=== PATIENT | female | born 1985 | race Caucasian/White ===

== ENCOUNTER → 2018-09-26 | Outpatient (CLI) | payer MEDICAID ==
[2018-09-26 11:19] VITALS: BP 121/89; PULSE 84; RESP 16; TEMP 98.8; BMI 39.9
--- NOTE | 2018-09-26 12:56 | P.HPBAR ---
Bariatric H&P - History & Physicial H&P Date: 09/26/18 History & Physicial: Visit/CC: Initial Visit Patient initial contact: Initial weight: 105.687 kg Initial weight in pounds: 233.00 Height: 5 ft 4 in Initial BMI: 39.9 Last weight: Current weight: 105.687 kg Current weight in pounds: 233.00 Current BMI: 39.9 [place] body weight (based on NIH guidelines): 54.431 kg Excess body weight loss: 0.0% The patient is a 32 year-old F who presents for Bariatric Assessment. HPI: She is looking into sleeve gastrectomy. Her highest weight 260 pounds. She is in medical supervised weight loss of 30 pounds. She takes Zantac daily. Her GERD. Her reflux is severe. She has been doing dieting over 5 years on and off. No cancers in the family. No DVTS. No easy bruising. She still has her gallbladder. No family history of gallbladder problems. ABDOMEN: Unremarkable. ASSESSMENT: 1. Morbid obesity PLAN: 1. EGD for reflux 2. US gallbladder Past Medical History Past Medical History: GERD/Reflux History of Any Multi-Drug Resistant Organisms: None Reported Past Surgical History: Adenoidectomy, Tonsillectomy Past Anesthesia/Blood Transfusion Reactions: No Reported Reaction Smoking Status: Never smoker Surgical - Exam Vital Signs Temp Pulse Resp BP 98.8 F 84 16 121/89 09/26/18 11:15 09/26/18 11:15 09/26/18 11:15 09/26/18 11:15 Bariatric Checklist Checklist: Plan: Checklist: EGD: 1. Hiatal hernia: 2. H. Pylori: HgbA1c: Vitamin D: Smoking: Never smoker Primary care physician referral: Dr. German [facility] Psychiatry clearance: Cardiology clearance: Sleep study: Diet journal: VTE risk score: VTE risk level: Rehab needs at discharge:
[2018-09-26 13:08] LABS: HCT 44.3 % (34.0-46.0); MCH 29.8 pg (25.0-35.0); MCHC 31.6 g/dL (31.0-37.0); MCV 94.4 fL (80.0-100.0); Mean Platelet Volume 7.2; Platelet Count 228 k/uL (150-450); RBC 4.69 m/uL (3.80-5.40); RDW 13.3 % (11.5-15.5); WBC 6.1 k/uL (3.8-10.6)
[2018-09-26 13:27] LABS: INR 0.9 (<1.2); Partial Thromboplastin Time 25.2 sec (22.0-30.0); Prothrombin Time 10.1 sec (9.0-12.0)
[2018-09-26 18:50] LABS: Parathyroid Hormone Intact 43.6 pg/mL (14.0-72.0)
[2018-09-26 20:47] LABS: Albumin 4.4 g/dL (3.80-4.90); Albumin/Globulin Ratio 1.63 (1.60-3.17); Anion Gap 7.7 mmol/L (4.00-12.00); Calcium 9.5 mg/dL (8.7-10.3); Carbon Dioxide 26.3 mmol/L (21.6-31.8); Globulin 2.7 g/dL (1.6-3.3); Magnesium 2.1 mg/dL (1.5-2.4); Phosphorus 3.3 mg/dL (2.4-5.1); Potassium 4.5 mmol/L (3.5-5.5); Total Bilirubin 0.5 mg/dL (0.3-1.2); Total Protein 7.1 g/dL (6.2-8.2)
[2018-09-26 21:05] LABS: Iron Saturation 6.49 (12.00-45.00)
[2018-09-26 21:15] LABS: Vitamin D 25 Hydroxy 32.6 ng/mL (30.0-100.0)
[2018-09-26 21:18] LABS: Folate, Serum 12.4 ng/mL
[2018-09-27 12:54] LABS: Zinc, Serum 80 ug/dL (60-130)
[2018-09-28 15:07] LABS: Vit B1(Thiamine) 56 ug/L (38-122)
[2018-09-30 07:16] LABS: Vitamin A 32 ug/dL (38-106)
[2018-10-01 00:44] LABS: Selenium 123 mcg/L (63-160)
== END ==
LOC: BARWHC3 09:35
PROVIDERS: ATTEND Surgery Plastic and Reconstructive Surgery
DX: E66.01 Morbid (severe) obesity due to excess calories (principal); K21.9 Gastro-esophageal reflux disease without esophagitis; E88.81 Metabolic syndrome and other insulin resistance; E44.0 Moderate protein-calorie malnutrition; E55.9 Vitamin D deficiency, unspecified; I11.9 Hypertensive heart disease without heart failure; G47.30 Sleep apnea, unspecified; Z68.43 Body mass index [BMI] 50.0-59.9, adult; Z79.899 Other long term (current) drug therapy
CPT/HCPCS: 80053; 80061; 82306; 82525; 82607; 82728; 82746; 83036; 83540; 83550; 83735; 83970; 84100; 84134; 84255; 84425; 84443; 84590; 84630; 85027; 85610; 85730; 93005; 99201

== ENCOUNTER → 2018-12-23 | Day surgery (SDC) | payer MEDICAID ==
[2018-12-16 09:03] VITALS: BMI 38.7
[~2018-12-23] MED LIST: LACTATED RINGERS 1,000 ML IV SCH; LIDOCAINE 1% 20 ML VIAL (10MG/ML) FOR IV START INTRADERMA PRN; LIDOCAINE 1% INJ 10MG/ML (20 ML MDV) ONE; PROPOFOL 10 MG/ML 20 ML VIAL IV ONE
[2018-12-23 08:34] VITALS: TEMP 98.1
--- NOTE | 2018-12-23 10:46 | P.GSHP ---
History of Present Illness H&P Date: 12/23/18 CHIEF COMPLAINT: GERD HISTORY OF PRESENT ILLNESS: The patient is a 33-year-old female who presents reports gastroesophageal reflux disease. Upper endoscopy was offered for further evaluation and management. PAST MEDICAL HISTORY: Please see list. PAST SURGICAL HISTORY: Please see list. MEDICATIONS: Please see list. ALLERGIES: Please see list. SOCIAL HISTORY: No illicit drug use FAMILY HISTORY: No reports of Crohn disease or ulcerative colitis. REVIEW OF ORGAN SYSTEMS: CONSTITUTIONAL: No reports of fevers or chills. GI: Denies any blood in stools or constipation. PHYSICAL EXAM: VITAL SIGNS: Stable GENERAL: Well-developed and pleasant in no acute distress. HEENT: No scleral icterus. Extraocular movements grossly intact. Moist buccal mucosa. NECK: Supple without lymphadenopathy. CHEST: Unlabored respirations. Equal bilateral excursions. CARDIOVASCULAR: Regular rate and rhythm. Distal 2+ pulses. ABDOMEN: Soft, nondistended. MUSCULOSKELETAL: No clubbing, cyanosis, or edema. ASSESSMENT: 1. Gastroesophageal reflux disease PLAN: 1. Recommend proceeding with an upper endoscopy Past Medical History Past Medical History: GERD/Reflux History of Any Multi-Drug Resistant Organisms: None Reported Past Surgical History: Adenoidectomy, Tonsillectomy Past Anesthesia/Blood Transfusion Reactions: No Reported Reaction Smoking Status: Never smoker - Past Family History Mother Family Medical History: No Reported History Medications and Allergies Home Medications Medication Instructions Recorded Confirmed Type Ranitidine HCl [Zantac] 150 mg PO DAILY 12/16/18 12/23/18 History Allergies Allergy/AdvReac Type Severity Reaction Status Date / Time No Known Allergies Allergy Verified 12/23/18 08:36 Surgical - Exam Vital Signs Temp Pulse Resp BP Pulse Ox 98.1 F 86 16 125/75 97 12/23/18 08:33 12/23/18 08:33 12/23/18 08:33 12/23/18 08:33 12/23/18 08:33
--- NOTE | 2018-12-23 10:56 | P.PCN ---
Date of Procedure: 12/23/18 Description of Procedure: PREOPERATIVE DIAGNOSIS: Gastroesophageal reflux disease. Morbid obesity. POSTOPERATIVE DIAGNOSIS: Morbid obesity. Gastritis. Gastroesophageal reflux disease. OPERATION: Esophagogastroduodenoscopy with biopsies along antrum. SURGEON: Marie Wood MD ANESTHESIA: MAC. INDICATIONS: The patient is a 33-year-old female who presents with a history of reflux disease. Benefits and risks of the procedure were described. Informed consent was obtained. DESCRIPTION: The patient was brought into the endoscopy suite and laid in the left lateral decubitus position. An Olympus gastroscope was passed along the posterior oropharynx down to the distal esophagus where the squamocolumnar junction was encountered at 40 cm from the incisors. The stomach was entered and no bile reflux was found. Additional findings are listed below. Biopsies with cold forceps were obtained of the antrum. The first through third portion of the duodenum was examined and unremarkable. Retroflexion of the scope confirmed Hill grade 3 lower esophageal valve. The squamocolumnar junction demonstrated LA grade B erosive esophagitis. The stomach was desufflated. The patient tolerated the procedure well. FINDINGS: Squamocolumnar junction 35 cm from the incisors. Diaphragmatic hiatus at 35 cm. Hill grade 3 lower esophageal valve. LA grade B erosive esophagitis. No active duodenitis. Chronic gastritis RECOMMENDATIONS: Upper endoscopy as needed. Plan - Discharge Summary Discharge Rx Participant: No New Discharge Prescriptions: No Action Ranitidine HCl [Zantac] 150 mg PO DAILY Discharge Medication List Ranitidine HCl [Zantac] 150 mg PO DAILY 12/16/18 [History]
[2018-12-23 11:26] VITALS: BP 123/72; PULSE 65; RESP 18
== END | disposition home or self-care (01) ==
LOC: ORWHC2ENDO 07:56
PROVIDERS: ATTEND Surgery Plastic and Reconstructive Surgery
DX: K21.0 Gastro-esophageal reflux disease with esophagitis (principal); K29.50 Unspecified chronic gastritis without bleeding; E66.01 Morbid (severe) obesity due to excess calories; K29.70 Gastritis, unspecified, without bleeding; Z68.38 Body mass index [BMI] 38.0-38.9, adult; Z79.899 Other long term (current) drug therapy
CPT/HCPCS: 81025; 88305; 43239; J2001; J2704

== ENCOUNTER → 2019-01-15 | Outpatient (CLI) | payer MEDICAID ==
[2019-01-15 16:02] VITALS: BP 138/80; PULSE 84; TEMP 98.2; BMI 38.1
--- NOTE | 2019-01-15 16:56 | P.PN ---
Subjective Progress Note Date: 01/15/19 DATE OF SERVICE: 01/15/2019 CHIEF COMPLAINT: Bariatric evaluation. HISTORY OF PRESENT ILLNESS: Luz Pepe is a 33-year-old female who comes with lifelong morbid obesity. She is looking into sleeve gastrectomy. She comes in with new gastroesophageal reflux disease. She was placed on Omeprazole and has done well. No report of abdominal pain. No reports of change in bowel habits. She has completed an upper endoscopy. At height of 5 feet 4 inches, her ideal body weight is 144 pounds. Her highest weight was 260 pounds. She comes in 222 from 233 pounds in 3 months. She has lost 11 pounds in 3 months. Her body mass index is 38.2. She is 78 pounds overweight. PAST MEDICAL HISTORY: 1. Morbid obesity due to excess calories 2. Body mass index of 40.0, initial 3. Gastroesophageal reflux disease PAST SURGICAL HISTORY: 1. Tonsillectomy 2. Adeniodectomy HOME MEDICATIONS: ALLERGIES: Medications and Allergies Home Medications Medication Instructions Recorded Confirmed Type No Known Home Medications 09/25/18 09/25/18 History Allergies Allergy/AdvReac Type Severity Reaction Status Date / Time No Known Allergies Allergy Verified 09/25/18 14:47 SOCIAL HISTORY: No past tobacco use. FAMILY HISTORY: No family history of ulcerative colitis disease or Crohn's disease. Family history of morbid obesity. No lupus in the family. No reports of stomach or esophageal cancer. REVIEW OF ORGAN SYSTEMS: CONSTITUTIONAL: At height of 5 feet 4 inches, her ideal body weight is 144 pounds. She comes in 233 pounds. Her body mass index is 40.0. She is 89 pounds overweight. HEENT: Denies any active troubles with vision or hearing. ENDOCRINE: No diabetes. No hypothyroidism. CARDIOVASCULAR: No past reports of palpitations or heart attacks or chest pain. RESPIRATORY: Has daytime somnolence. No asthma. GASTROINTESTINAL: Denies any bright red blood per rectum. No diarrhea. No constipation. MUSCULOSKELETAL: Has lower back pain and joint pain. History of occassional bilateral lower extremity edema. NEURO: No headaches. No seizure disorders. PSYCH: No depression. No suicidal ideation. RHEUMATOLOGIC: No lupus. No rheumatoid arthritis. HEMATOLOGIC: Denies any abnormal bleeding or bruising. No personal history of DVTs. SKIN: No rash. No skin cancer. PHYSICAL EXAM: VITAL SIGNS: Height 5 foot 4 inches, weight 222 pounds. BMI 38.2 Vital Signs Temp 98.2 F 01/15/19 15:53 Pulse 84 01/15/19 15:53 Resp BP 138/80 01/15/19 15:53 Pulse Ox GENERAL: Well-developed in no acute distress. HEENT: No scleral icterus. Extraocular movements grossly intact. Hears conversational speech. No nasal drainage. NECK: Supple without lymphadenopathy. CHEST: Nonlabored respirations with equal bilateral excursions. CARDIOVASCULAR: Regular rate and regular rhythm. Distal 2+ pulses. ABDOMEN: Obese, soft, nontender, nondistended. MUSCULOSKELETAL: No clubbing, cyanosis. Gross strength 5/5 distal lower extremities. NEURO: No focal or lateralizing signs. Cranial nerves 2 through 12 grossly within normal limits. PSYCH: Appropriate affect. Alert and oriented to person, place and time. SKIN: Good skin turgor. Well perfused. LABS: Iron is low at 17, Pre-albumin is low at 17, Vitamin A is low 32 EKG is normal EGD FINDINGS: Squamocolumnar junction 35 cm from the incisors. Diaphragmatic hiatus at 35 cm. Hill grade 3 lower esophageal valve. LA grade B erosive esophagitis. No active duodenitis. Chronic gastritis Final Pathologic Diagnosis GASTRIC ANTRUM, BIOPSY: Mild chronic gastritis. Helicobacter organisms are not identified on routine H+E stained sections. ASSESSMENT: 1. Morbid obesity due to excess calories 2. Body mass index of 40.0, initial 3. Gastroesophageal reflux disease PLAN: 1. She does well with omeprazole. Continue with Omeprazole 2. She wants the sleeve where increased risk for gastroesophageal reflux was described. 3. Recommend sleep study for additional comorbidities such as sleep apnea. 4. Continue with medical supervised weight loss. Objective - Vital Signs Vital signs: Vital Signs Temp 98.2 F 01/15/19 15:53 Pulse 84 01/15/19 15:53 Resp BP 138/80 01/15/19 15:53 Pulse Ox Intake & Output 01/14/19 01/15/19 01/15/19 18:59 06:59 18:59 Weight 100.879 kg
== END | disposition home or self-care (01) ==
LOC: BARWHC3 15:24
PROVIDERS: ATTEND Surgery Plastic and Reconstructive Surgery
DX: E66.01 Morbid (severe) obesity due to excess calories (principal); K21.9 Gastro-esophageal reflux disease without esophagitis; Z68.38 Body mass index [BMI] 38.0-38.9, adult; Z79.899 Other long term (current) drug therapy
CPT/HCPCS: 99211

== ENCOUNTER → 2019-01-20 | Outpatient (CLI) | payer MEDICAID ==
[2019-01-20 09:42] VITALS: BMI 40.3
== END ==
LOC: BARWHC3 08:32
PROVIDERS: ATTEND Surgery Plastic and Reconstructive Surgery
DX: E66.01 Morbid (severe) obesity due to excess calories (principal); Z68.41 Body mass index [BMI] 40.0-44.9, adult
CPT/HCPCS: 97804

== ENCOUNTER → 2019-04-02 | Outpatient (CLI) | payer MEDICAID ==
[2019-04-02 16:28] VITALS: BP 138/64; PULSE 91; RESP 16; TEMP 99; BMI 37.9
--- NOTE | 2019-04-02 17:02 | P.PN ---
Subjective Progress Note Date: 04/02/19 DATE OF SERVICE: 04/02/2019 CHIEF COMPLAINT: Morbid obesity. HISTORY OF PRESENT ILLNESS: Luz Pepe is a 33-year-old female who comes with lifelong morbid obesity. She is looking into sleeve gastrectomy. She has gastroesophageal reflux disease. No report of abdominal pain. She has history of iron deficiency anemia. She is undergoing medical supervised weight loss. At height of 5 feet 4 inches, her ideal body weight is 144 pounds. Her highest weight was 260 pounds, BMI 44.7. She comes in 228 pounds from 222 pounds, 3 months ago. She has lost 7 pounds in 3 months. Her body mass index is 37.9. She is 84 pounds overweight. PAST MEDICAL HISTORY: 1. Morbid obesity due to excess calories 2. Body mass index of 44.7, initial 3. Gastroesophageal reflux disease 4. Iron deficiency anemia 5. Chronic gastritis PAST SURGICAL HISTORY: 1. Tonsillectomy 2. Adeniodectomy 3. Upper endoscopy HOME MEDICATIONS: ALLERGIES: Medications and Allergies Home Medications Medication Instructions Recorded Confirmed Type No Known Home Medications 09/25/18 09/25/18 History Allergies Allergy/AdvReac Type Severity Reaction Status Date / Time No Known Allergies Allergy Verified 09/25/18 14:47 SOCIAL HISTORY: No past tobacco use. FAMILY HISTORY: No family history of ulcerative colitis disease or Crohn's disease. Family history of morbid obesity. No lupus in the family. No reports of stomach or esophageal cancer. REVIEW OF ORGAN SYSTEMS: CONSTITUTIONAL: At height of 5 feet 4 inches, her ideal body weight is 144 pounds. Her highest weight was 260 pounds, BMI 44.7. HEENT: Denies any active troubles with vision or hearing. ENDOCRINE: No diabetes. No hypothyroidism. CARDIOVASCULAR: No past reports of palpitations or heart attacks or chest pain. RESPIRATORY: Has daytime somnolence. No asthma. GASTROINTESTINAL: Denies any bright red blood per rectum. No diarrhea. No constipation. Has gastroesophageal reflux disease. MUSCULOSKELETAL: Has lower back pain and joint pain. NEURO: No headaches. No seizure disorders. PSYCH: No depression. No suicidal ideation. RHEUMATOLOGIC: No lupus. No rheumatoid arthritis. HEMATOLOGIC: Denies any abnormal bleeding or bruising. No personal history of DVTs. SKIN: No rash. No skin cancer. PHYSICAL EXAM: VITAL SIGNS: Height 5 foot 4 inches, weight 228 pounds. BMI 39.1 Vital Signs Temp 99 F 04/02/19 16:24 Pulse 91 04/02/19 16:24 Resp 16 04/02/19 16:24 BP 138/64 04/02/19 16:24 Pulse Ox GENERAL: Well-developed in no acute distress. HEENT: No scleral icterus. Extraocular movements grossly intact. Hears conversational speech. No nasal drainage. NECK: Supple without lymphadenopathy. CHEST: Nonlabored respirations with equal bilateral excursions. CARDIOVASCULAR: Regular rate and regular rhythm. Distal 2+ pulses. ABDOMEN: Obese, soft, nontender, nondistended. MUSCULOSKELETAL: No clubbing, cyanosis. Gross strength 5/5 distal lower extremities. NEURO: No focal or lateralizing signs. Cranial nerves 2 through 12 grossly within normal limits. PSYCH: Appropriate affect. Alert and oriented to person, place and time. SKIN: Good skin turgor. Well perfused. LABS: Vitamin A is low, Iron is low. Pre-albumin is low. EKG is normal. ASSESSMENT: 1. Morbid obesity due to excess calories 2. Body mass index of 44.7, initial 3. Gastroesophageal reflux disease 4. Iron deficiency anemia 5. Pre-hypertension 6. Obstructive sleep apnea. PLAN: 1. Bariatric options between a sleeve, band and a Becca-en-Y gastric bypass were reviewed in detail. The patient elected for a sleeve gastrectomy. Robotic assisted approach described. 2. The [place] [facility] Data was also reviewed with benefits and risks as described. 3. An 8 page second-generation bariatric consent form was reviewed in detail including potential of bleeding, infection, leaks, adequate weight loss, nutritional deficiencies which the patient demonstrated understanding of the risks. 4. A 2 week high-protein low caloric 800 kcal diet described to address hepatom egaly. 5. Preoperative labs including complete metabolic panel and CBC with type and screen recommended. 6. DVT prophylaxis per [place] [facility]. 7. Antibiotic prophylaxis. 8. Inpatient hospitalization anticipated for more than 2 nights. 9. All questions and concerns were addressed with the patient. 10. She has low iron and recommend iron infusion. Objective - Vital Signs Vital signs: Vital Signs Temp 99 F 04/02/19 16:24 Pulse 91 04/02/19 16:24 Resp 16 04/02/19 16:24 BP 138/64 04/02/19 16:24 Pulse Ox Intake & Output 04/01/19 04/02/19 04/02/19 18:59 06:59 18:59 Weight 103.419 kg
[2019-04-03 01:08] LABS: Ferritin 126.6 ng/mL (10.0-291.0)
[2019-04-03 01:25] LABS: Iron Saturation 8.57 (12.00-45.00)
== END | disposition home or self-care (01) ==
LOC: BARWHC3 15:49
PROVIDERS: ATTEND Surgery Plastic and Reconstructive Surgery
DX: E66.01 Morbid (severe) obesity due to excess calories (principal); D50.9 Iron deficiency anemia, unspecified
CPT/HCPCS: 82728; 83540; 83550; 99211

== ENCOUNTER → 2019-04-10 | Outpatient (CLI) | payer MEDICAID ==
--- NOTE | 2019-04-10 11:00 | US ---
EXAMINATION TYPE: US gallbladder DATE OF EXAM: 04/10/2019 COMPARISON: NONE CLINICAL HISTORY: R10.11 ABD PAIN RUQ. Pt states pre-op gastric sleeve surgery EXAM MEASUREMENTS: Liver Length: 15.8 cm Gallbladder Wall: 0.2 cm CBD: 0.4 cm Right Kidney: 10.6 x 3.7 x 4.4 cm Pancreas: wnl Liver: wnl Gallbladder: wnl Evidence for sonographic Pepe's sign: No CBD: wnl Right Kidney: wnl No abnormality visualized IMPRESSION: No distinct abnormality appreciated.
== END | disposition home or self-care (01) ==
LOC: RADUSWWP 10:31
PROVIDERS: ATTEND Surgery Plastic and Reconstructive Surgery
DX: K81.9 Cholecystitis, unspecified (principal); R10.11 Right upper quadrant pain
CPT/HCPCS: 76705

== ENCOUNTER → 2019-04-23 | Outpatient (CLI) | payer MEDICAID ==
[2019-04-23 17:00] LABS: ALT 29 U/L (9-52); AST 20 U/L (14-36); African American GFR (CKD) >90 (>60 ml/min/1.73 sqM); Albumin 4.2 g/dL (3.5-5.0); Alkaline Phosphatase 56 U/L (38-126); Anion Gap 8 mmol/L; Blood Urea Nitrogen 18 mg/dL (7-17); Calcium 9.4 mg/dL (8.4-10.2); Carbon Dioxide 26 mmol/L (22-30); Chloride 104 mmol/L (98-107); Glucose 83 mg/dL (74-99); Potassium 3.9 mmol/L (3.5-5.1); Sodium 138 mmol/L (137-145); Total Bilirubin 0.4 mg/dL (0.2-1.3); Total Protein 7.3 g/dL (6.3-8.2)
[2019-04-23 17:05] LABS: Basophils % (A) 1 %; Eosinophils # (A) 0.2 k/uL (0-0.7); Eosinophils % (A) 2 %; HGB 13.4 gm/dL (11.4-16.0); Lymphocytes # (A) 1.8 k/uL (1.0-4.8); Lymphocytes % (A) 24 %; MCH 29.9 pg (25.0-35.0); MCHC 32.8 g/dL (31.0-37.0); MCV 91.4 fL (80.0-100.0); Monocytes # (A) 0.5 k/uL (0-1.0); Monocytes % (A) 6 %; Neutrophils % (A) 66 %; Platelet Count 234 k/uL (150-450); RBC 4.49 m/uL (3.80-5.40); RDW 13.1 % (11.5-15.5); WBC 7.6 k/uL (3.8-10.6)
== END | disposition home or self-care (01) ==
LOC: LABPAT 15:51
PROVIDERS: ATTEND Surgery Plastic and Reconstructive Surgery
DX: Z01.812 Encounter for preprocedural laboratory examination (principal)
CPT/HCPCS: 80053; 85025

== ENCOUNTER 2019-04-28 12:00 | Inpatient (IN) | payer MEDICAID ==
[2019-04-24 11:22] VITALS: BMI 38.4
--- NOTE | 2019-04-27 16:00 | P.PN ---
Progress Note - Text Progress Note Date: 04/27/19 Message left on telephone regarding impending snowstorm tomorrow. Patient offered for rescheduling or start travel time earlier to make visit.
--- NOTE | 2019-04-27 20:16 | P.GSHP ---
History of Present Illness H&P Date: 04/28/19 DATE OF SERVICE: 04/28/2019 CHIEF COMPLAINT: Morbid obesity HISTORY OF PRESENT ILLNESS: Luz Pepe is a 33-year-old female who comes with lifelong morbid obesity. She is looking into sleeve gastrectomy. She comes in with gastroesophageal reflux disease. She was placed on Omeprazole and has done well. No report of abdominal pain. No reports of change in bowel habits. As a result of her morbid obesity, she has osteoarthritis of the hips and knees. She is pre-hypertensive. At height of 5 feet 4 inches, her ideal body weight is 144 pounds. Her highest weight was 260 pounds. She comes in 224 pounds from 222 pounds in 3 months. She has gained 2 pounds in 3 months. Her body mass index is 38.4. She is 80 pounds overweight. PAST MEDICAL HISTORY: 1. Morbid obesity due to excess calories 2. Body mass index of 40.0, initial 3. Gastroesophageal reflux disease 4. Osteoarthritis of the knee 5. Osteoarthritis of the hips 6. Pre-hypertensive PAST SURGICAL HISTORY: 1. Tonsillectomy 2. Adeniodectomy 3. EGD HOME MEDICATIONS: ALLERGIES: Medications and Allergies Home Medications Medication Instructions Recorded Confirmed Type No Known Home Medications 09/25/18 09/25/18 History Allergies Allergy/AdvReac Type Severity Reaction Status Date / Time No Known Allergies Allergy Verified 09/25/18 14:47 SOCIAL HISTORY: No past tobacco use. FAMILY HISTORY: No family history of ulcerative colitis disease or Crohn's disease. Family history of morbid obesity. No lupus in the family. No reports of stomach or esophageal cancer. REVIEW OF ORGAN SYSTEMS: CONSTITUTIONAL: At height of 5 feet 4 inches, her ideal body weight is 144 pounds. She comes in 233 pounds. Her body mass index is 40.0. She is 89 pounds overweight. HEENT: Denies any active troubles with vision or hearing. ENDOCRINE: No diabetes. No hypothyroidism. CARDIOVASCULAR: No past reports of palpitations or heart attacks or chest pain. RESPIRATORY: Has daytime somnolence. No asthma. GASTROINTESTINAL: Denies any bright red blood per rectum. No diarrhea. No constipation. MUSCULOSKELETAL: Has lower back pain and joint pain. History of occassional bilateral lower extremity edema. NEURO: No headaches. No seizure disorders. PSYCH: No depression. No suicidal ideation. RHEUMATOLOGIC: No lupus. No rheumatoid arthritis. HEMATOLOGIC: Denies any abnormal bleeding or bruising. No personal history of DVTs. SKIN: No rash. No skin cancer. PHYSICAL EXAM: VITAL SIGNS: Height 5 foot 4 inches, weight 224 pounds. BMI 38.4 GENERAL: Well-developed in no acute distress. HEENT: No scleral icterus. Extraocular movements grossly intact. Hears conversational speech. No nasal drainage. NECK: Supple without lymphadenopathy. CHEST: Nonlabored respirations with equal bilateral excursions. CARDIOVASCULAR: Regular rate and regular rhythm. Distal 2+ pulses. ABDOMEN: Obese, soft, nontender, nondistended. MUSCULOSKELETAL: No clubbing, cyanosis. Gross strength 5/5 distal lower extremities. NEURO: No focal or lateralizing signs. Cranial nerves 2 through 12 grossly within normal limits. PSYCH: Appropriate affect. Alert and oriented to person, place and time. SKIN: Good skin turgor. Well perfused. LABS: Iron is low at 17 ASSESSMENT: 1. Morbid obesity due to excess calories 2. Body mass index of 40.0, initial 3. Gastroesophageal reflux disease 4. Osteoarthritis of the knee 5. Osteoarthritis of the hips 6. Pre-hypertensive 7. Iron deficiency anema. PLAN: 1. Bariatric options between a sleeve, band and a Becca-en-Y gastric bypass were reviewed in detail. The patient elected for a sleeve gastrectomy. Robotic assisted approach described. 2. The [place] [facility] Data was also reviewed with benefits and risks as described. 3. An 8 page second-generation bariatric consent form was reviewed in detail including potential of bleeding, infection, leaks, adequate weight loss, gastroesophageal reflux disease, nutritional deficiencies which the patient demonstrated understanding of the risks. 4. A 2 week high-protein low caloric 800 kcal diet described to address hepatomegaly. 5. Preoperative labs including complete metabolic panel and CBC with type and screen recommended. 6. DVT prophylaxis per [place] [facility]. 7. Antibiotic prophylaxis. 8. Inpatient hospitalization anticipated for more than 2 nights. 9. All questions and concerns were addressed with the patient. Past Medical History Past Medical History: Blood Disorder, GERD/Reflux Additional Past Medical History / Comment(s): Low iron, had 2 iron infusions 03/2019. History of Any Multi-Drug Resistant Organisms: None Reported Past Surgical History: Adenoidectomy, Tonsillectomy Additional Past Surgical History / Comment(s): EGD Past Anesthesia/Blood Transfusion Reactions: No Reported Reaction Smoking Status: Never smoker - Past Family History Mother Family Medical History: No Reported History Medications and Allergies Home Medications Medication Instructions Recorded Confirmed Type Omeprazole 40 mg PO DAILY #30 capsule. 12/23/18 04/24/19 Rx Iron 27 mg PO DAILY 04/24/19 04/24/19 History Levonorgestrel [Mirena] 1 each IY DIRECTED 04/24/19 04/24/19 History Multivit with Calcium,Iron,Min 1 each PO DAILY 04/24/19 04/24/19 History [Women's Multivitamin] Allergies Allergy/AdvReac Type Severity Reaction Status Date / Time No Known Allergies Allergy Verified 04/24/19 11:00
[~2019-04-28 12:00] MED LIST changes: +CHLORHEXIDINE GLUCONATE 15 ML CUP MUCOUS MEM ONE; +DEXAMETHASONE SOD PHOSPHATE 10 MG/ML 1 ML VIAL IV ONE; +ENOXAPARIN 40 MG/0.4 ML SYRINGE SQ STA; -LACTATED RINGERS 1,000 ML IV SCH; -LIDOCAINE 1% INJ 10MG/ML (20 ML MDV) ONE; +ONDANSETRON 4 MG/2 ML VIAL IVP ONE; +ONDANSETRON 4 MG/2 ML VIAL IVP PRN; +PANTOPRAZOLE 40 MG/10 ML VIAL IV STA; -PROPOFOL 10 MG/ML 20 ML VIAL IV ONE; +SCOPOLAMINE 1.5MG/72HR PATCH TRANSDERM ONE
[2019-04-28] MEDS: LACTATED RINGERS 1,000 ML IV SCH (12:45)
[2019-04-28] MEDS ORDERED: MIDAZOLAM 2 MG/2 ML VIAL IV ONE (13:00)
[2019-04-28] MEDS ORDERED: GLYCOPYRROLATE 0.2 MG/ML 2 ML VIAL ONE (14:29)
[2019-04-28] MEDS ORDERED: SUCCINYLCHOLINE CHLORIDE 100 MG/5 ML SYR IV ONE (14:29)
[2019-04-28] MEDS ORDERED: NEOSTIGMINE 1 MG/ML 10 ML VIAL ONE (14:29)
[2019-04-28] MEDS ORDERED: PROPOFOL 10 MG/ML 20 ML VIAL IV ONE (14:29)
[2019-04-28] MEDS ORDERED: MIDAZOLAM 2 MG/2 ML VIAL ONE (14:29)
[2019-04-28] MEDS ORDERED: HYDROmorphone (PF) 1 MG/ML ONE (14:29)
[2019-04-28] MEDS ORDERED: ROCURONIUM BROMIDE 10 MG/ML 10 ML VIAL IV ONE (14:29)
[2019-04-28] MEDS ORDERED: LIDOCAINE 1% INJ 10MG/ML (20 ML MDV) ONE (14:29)
[2019-04-28] MEDS ORDERED: fentaNYL (PF) 50 MCG/ML 2 ML AMP ONE (14:29)
[2019-04-28] MEDS ORDERED: LIDOCAINE 1%-EPI 1:100,000 20 ML VIAL SQ ONE ×2 (14:55→14:59)
[2019-04-28] MEDS ORDERED: LACTATED RINGERS 1,000 ML IV ONE ×2 (15:05→17:01)
[2019-04-28] MEDS: HYDROmorphone 0.5 MG/0.5 ML SYRINGE IVP PRN ×3 (16:15→16:39)
[2019-04-28] MEDS ORDERED: HYDROcodone/APAP 15 ML SOLUTION PO PRN (16:18)
[2019-04-28] MEDS ORDERED: NALOXONE 0.4 MG/ML 1 ML VIAL IV PRN (16:18)
[2019-04-28] MEDS ORDERED: ACETAMINOPHEN IV (For NPO) 1,000 MG in EMPTY BAG 1 BAG IVPB ONE (16:18)
[2019-04-28] MEDS ORDERED: DEXAMETHASONE SOD PHOSPHATE 10 MG/ML 1 ML VIAL IV PRN (16:20)
--- NOTE | 2019-04-28 16:23 | P.OP ---
Date of Procedure: 04/28/19 Description of Procedure: Date of Procedure: 04/28/19 SURGEON: OLIVIA CRUMP MD PREOPERATIVE DIAGNOSES: 1. Morbid obesity due to excess calories 2. Body mass index of 40.0, initial 3. Gastroesophageal reflux disease 4. Osteoarthritis of the knees, bilateral 5. Osteoarthritis of the hips, bilateral 6. Pre-hypertensive 7. Iron deficiency anema. POSTOPERATIVE DIAGNOSES: 1. Morbid obesity due to excess calories 2. Body mass index of 40.0, initial 3. Gastroesophageal reflux disease 4. Osteoarthritis of the knee 5. Osteoarthritis of the hips 6. Pre-hypertensive 7. Iron deficiency anema. OPERATION: 1. Robotic assisted daVinci Xi laparoscopic sleeve gastrectomy with 40-Algerian bougie, multiport. 2. Intraoperative esophagogastroduodenoscopy. ANESTHESIA: Gen. local anesthetic ESTIMATED BLOOD LOSS: 10 mL SPECIMENS REMOVED: Sleeve gastrectomy COMPLICATIONS: None. Condition: stable Disposition: floor INDICATIONS: Luz Pepe is a 33-year-old female who comes with lifelong morbid obesity. She is looking into sleeve gastrectomy. She comes in with gastroesophageal reflux disease. She was placed on Omeprazole and has done well. No report of abdominal pain. No reports of change in bowel habits. As a result of her morbid obesity, she has osteoarthritis of the hips and knees. She is pre- hypertensive. At height of 5 feet 4 inches, her ideal body weight is 144 pounds. Her highest weight was 260 pounds. She comes in 224 pounds. She comes in for sleeve gastrectomy. All surgical options for morbid obesity had been described using the [place] bariatric surgery collaborative comorbidity resolution including complication risk score. A second-generation bariatric consent form was described in detail including the possibility of protein malnutrition, leaks, gastric stricture, venous thrombosis, gastroesophageal reflux disease, need for further surgery for which she demonstrated understanding. Benefits and risks of the procedure were described at length. Informed consent was obtained. DESCRIPTION: The patient was brought into the operating room theater. Preoperatively she had received Lovenox subcutaneously for DVT prophylaxis. Additionally she had Peridex oral solution as an oral decontaminant. After general induction, the abdomen was prepped and draped in standard sterile fashion. An Ioban draping was placed along the abdomen. Earl catheter was placed. A robotic da Darby Xi system was prepped and primed. At 15 cm from the xiphoid, proposed port sites were marked with indelible marker along the anterior axillary line bilaterally, mid axillary line bilaterally with each ports were marked 10 to 15 cm from each other. The ict sales assistant port was marked along the left lateral abdominal wall. The robotic stapler port was marked for the right midclavicular line. A 5 mm 0 degrees laparoscopic trocar entry was performed along the left upper quadrant. The abdomen was insufflated to 15 mmHg pressure he tolerated well. Diagnostic laparoscopy demonstrated no injury to bowel, viscera, or mesentery. The liver surface was unremarkable. The liver edge was crisp consistent with low-carb high-protein diet for 2 weeks. No injury had occurred to the small bowel or viscera. Along the hiatus no evidence of large prominent hiatal hernia was found. A 8 mm port was placed along the right upper abdominal wall after exchanging the 5 mm port. A separate 8 mm port was placed along the left lateral abdominal wall. Please note that the ports were placed at least 20 cm away from the target anatomy. Care was taken to check each robotic arms were safely away from co llision with the bed or the patient. At the epigastrium, a median sized Maribel liver retractor was placed under direct visualization with the [employer]ating Mechanic placed under the right shoulder of the patient. Next, 12-mm robot stapler port was placed along the right upper quadrant. The camera 8-mm port was maintained along the epigastrium, The patient was repositioned in reverse Trendelenburg position at 20-degrees after lowering the bed. The robot was docked along the left side of the patient. Using a grasper for arm 4, a vessel sealer for arm 3, including grasper for arm 1, the robotic system was docked and primed as described. Instruments were interchanged by the ict sales assistant for stapler loads. The camera was placed at 30-degrees down. I had sat at the console. The pylorus was identified and 6 cm proximally along the greater curvature of the stomach, the short gastrics were mobilized upwards to the angle of His using a vessel sealer. Hemostasis was excellent during this portion of the procedure. Next, the upper pole of the stomach was adherent to the left violetta, which was gently dissected free using atraumatic grasper. The nursing strategic procurement manager placed a 40-Algerian blunted bougie into the stomach. Robotic stapler green loads 60 mm x 1, white loads 60 mm X 1, followed by blue 60 mm x 4 loads were used to create the sleeve. Initial firing was across the antrum of the stomach towards the angle of His. The staple line was completely hemostatic and linear without corkscrewing. Hemostasis was excellent. The space from the angularis incisura of the sleeve was approximately 4 cm. I then went to the head of the bed to perform the intraoperative esophagogastroduodenoscopy leak test. The upper pole of the stomach was bathed using normal saline solution. The scope was withdrawn with careful inspection along the staple line for which no leaks were found along the entire length. Additionally,the sleeve was completely hemostatic without any encroachment along the angularis incisura. Its topology was a soft "J". No stricture was encountered upon placement of the scope. The GI tract was desufflated. The patient tolerated this portion of the procedure well. The scope was completely withdrawn. The robot was undocked. I then rescrubbed into case, whereby the irrigation fluid was aspirated from the abdominal cavity. Tisseel fibrin sealant was placed along the entire staple length. Once dried the Maribel liver retractor was removed. Attention was now brought to removal of the specimen. The distal end of the sleeve gastrectomy specimen was brought out through the 12 mm port at the left upper quadrant. The specimen was gently removed en total. No contamination had occurred during this process. All instruments and pneumoperitoneum including irrigation fluid was removed from the abdominal cavity. The 12 mm port site was closed using 0-Vicryl and Rikki Love and irrigated with diluted hydrogen peroxide. The final incisions were closed using subcuticular interrupted suture of 4-0 Monocryl. Dermabond was applied to the skin once the skin had been cleansed. OptiFoam dressing was placed along the stomach extraction site. At the end of the procedure, needle, sponge, and instrument count was verified correct by the surgical pathologist. The patient was taken to the postanesthesia care unit in stable condition. She had tolerated the procedure well. Intraoperative films and findings were reviewed with the patient's family. FINDINGS: 1. Negative intraoperative esophagogastrojejunoscopy leak test. 2. No hepatomegaly and no large hiatus hernia. 3. Total of 6 staplers used including 1 - 60 mm green and white robot leandro and 4 - 60 mm blue robot loads used to create the gastric sleeve. 4. Xiphoid to umbilicus of 17 cm. 5. Trocars placed 15 cm from xiphoid process 6. Sleeve gastrectomy 24 x 4 cm 7. Stomach adherent to spleen carefully dissected 8. Console time 36 minutes
[2019-04-28] MEDS: ONDANSETRON 4 MG/2 ML VIAL IVP SCH ×2 (18:04→23:21)
[2019-04-28] MEDS: DEXAMETHASONE SOD PHOSPHATE 4 MG/ML 1 ML VIAL IV SCH ×2 (18:04→23:15)
[2019-04-28] MEDS: 0.9% NACL WITH KCL 20 MEQ/L 1,000 ML IV SCH ×2 (18:04→23:28)
[2019-04-28] MEDS: SIMETHICONE 40 MG/0.6 ML DROPS 2,000 MG/30 ML BOTTLE PO SCH ×2 (18:05→23:12)
[2019-04-28] MEDS: HYOSCYAMINE ORAL DROPS 1.875 MG/15 ML BOTTLE PO SCH ×2 (18:05→23:13)
[2019-04-28] MEDS: HYDROmorphone 1 MG/ML 1 ML SYRINGE IVP PRN ×2 (19:39→23:09)
[2019-04-28] MEDS: ALBUTEROL NEBULIZED 2.5 MG/3 ML INHALATION SCH (21:06)
[2019-04-29] MEDS: HYDROmorphone 1 MG/ML 1 ML SYRINGE IVP PRN ×3 (02:32→08:46)
[2019-04-29] MEDS: LACTATED RINGERS 1,000 ML IV SCH (05:07)
[2019-04-29] MEDS: ONDANSETRON 4 MG/2 ML VIAL IVP SCH ×2 (05:17→12:14)
[2019-04-29] MEDS: HYOSCYAMINE ORAL DROPS 1.875 MG/15 ML BOTTLE PO SCH ×2 (05:27→12:15)
[2019-04-29] MEDS: SIMETHICONE 40 MG/0.6 ML DROPS 2,000 MG/30 ML BOTTLE PO SCH ×2 (05:28→12:15)
[2019-04-29] MEDS: 0.9% NACL WITH KCL 20 MEQ/L 1,000 ML IV SCH (05:28)
[2019-04-29] MEDS: DEXAMETHASONE SOD PHOSPHATE 4 MG/ML 1 ML VIAL IV SCH ×2 (05:31→12:14)
[2019-04-29 07:02] LABS: Basophils % (A) 0 %; Eosinophils % (A) 0 %; HCT 40.3 % (34.0-46.0); HGB 13.4 gm/dL (11.4-16.0); Lymphocytes # (A) 0.7 k/uL (1.0-4.8); Lymphocytes % (A) 8 %; MCH 30.7 pg (25.0-35.0); MCHC 33.3 g/dL (31.0-37.0); MCV 92.1 fL (80.0-100.0); Mean Platelet Volume 6.7; Monocytes # (A) 0.2 k/uL (0-1.0); Monocytes % (A) 2 %; Neutrophils # (A) 7.7 k/uL (1.3-7.7); Neutrophils % (A) 89 %; Platelet Count 198 k/uL (150-450); RBC 4.38 m/uL (3.80-5.40); RDW 13.3 % (11.5-15.5); WBC 8.6 k/uL (3.8-10.6)
[2019-04-29 07:05] LABS: African American GFR (CKD) >90 (>60 ml/min/1.73 sqM); Anion Gap 8 mmol/L; Blood Urea Nitrogen 10 mg/dL (7-17); Calcium 8.6 mg/dL (8.4-10.2); Carbon Dioxide 22 mmol/L (22-30); Chloride 108 mmol/L (98-107); Magnesium 1.9 mg/dL (1.6-2.3); Phosphorus 3.1 mg/dL (2.5-4.5); Potassium 5.2 mmol/L (3.5-5.1); Sodium 138 mmol/L (137-145)
[2019-04-29] MEDS: ALBUTEROL NEBULIZED 2.5 MG/3 ML INHALATION SCH ×3 (07:55→15:22)
[2019-04-29] MEDS ORDERED: 0.9% NACL WITH KCL 20 MEQ/L 1,000 ML IV SCH (08:00)
[2019-04-29 08:22] VITALS: BP 125/76; TEMP 980
[2019-04-29] MEDS ORDERED: ENOXAPARIN 40 MG/0.4 ML SYRINGE SQ SCH (09:00)
[2019-04-29] MEDS ORDERED: PANTOPRAZOLE 40 MG/10 ML VIAL IV SCH (09:00)
--- NOTE | 2019-04-29 09:48 | FL ---
EXAMINATION TYPE: FL UGI DATE OF EXAM: 04/29/2019 CLINICAL HISTORY: Status post gastric sleeve. Postoperative evaluation. TECHNIQUE: Limited esophagram is performed utilizing Isovue 370. A total of 40 seconds of fluoroscop ic time was utilized during procedure. 11 fluoroscopic images were saved during the examination. COMPARISON: None. FINDINGS: The patient swallowed contrast without difficulty or delay. Esophageal peristalsis and mo tility are within normal limits. There is very mildly delayed flow of contrast along the diaphragmat ic hiatus into proximal stomach and subsequent flow into gastric sleeve. There is good flow from dist al sleeve into pylorus and duodenal sweep. Patient remains asymptomatic. There is no evidence of cont rast extravasation to suggest leak. IMPRESSION: No evidence of leak or significant obstruction status post recent gastric sleeve surgery. Very mild delay at the gastroesophageal junction relates to postoperative edema most commonly.
[2019-04-29 09:56] VITALS: PULSE 89; RESP 18
[2019-04-29] MEDS ORDERED: SODIUM CHLORIDE 0.9% 2,000 ML IV ONE (11:27)
--- NOTE | 2019-04-29 12:05 | P.DS ---
Providers Date of admission: 04/28/19 12:15 Expected date of discharge: 04/29/19 Attending physician: Marie Wood Primary care physician: Stated None Hospital Course: 33-year-old female who underwent robotic sleeve gastrectomy with Dr. Wood on 04/28/2019. Patient is doing well postoperatively without anemia complications. She is tolerating clear liquid diet. Denies nausea or vomiting. Pain is controlled on oral medications. Vital signs have been stable. She is stable for discharge home today. Please see EMR for further hospital course details. Discharge diagnosis 1. Morbid obesity, status post robotic sleeve gastrectomy Nurse practitioner note has been reviewed by physician. Signing provider agrees with the documented findings, assessment, and plan of care. Patient Condition at Discharge: Stable Plan - Discharge Summary Discharge Rx Participant: Yes New Discharge Prescriptions: New Bisacodyl [Dulcolax] 5 mg PO DAILY PRN #10 tablet. PRN Reason: Constipation Simethicone 40 mg/0.6 ml Drops [Mylicon Drops] 40 mg PO [facility]S PRN #30 ml PRN Reason: gas Acetaminophen Oral Susp [Tylenol Oral Susp] 650 mg PO Q4H PRN #200 ml PRN Reason: Pain Ondansetron Odt [Zofran Odt] 4 mg PO Q8HR PRN #9 tab PRN Reason: Nausea Continue Omeprazole 40 mg PO DAILY #30 capsule. Iron 27 mg PO DAILY Levonorgestrel [Mirena] 1 each IY DIRECTED Discontinued Multivit with Calcium,Iron,Min [Women's Multivitamin] 1 each PO DAILY Discharge Medication List Omeprazole 40 mg PO DAILY #30 capsule. 12/23/18 [Rx] Iron 27 mg PO DAILY 04/24/19 [History] Levonorgestrel [Mirena] 1 each IY DIRECTED 04/24/19 [History] Acetaminophen Oral Susp [Tylenol Oral Susp] 650 mg PO Q4H PRN #200 ml 04/29/19 [Rx] Bisacodyl [Dulcolax] 5 mg PO DAILY PRN #10 tablet. 04/29/19 [Rx] Ondansetron Odt [Zofran Odt] 4 mg PO Q8HR PRN #9 tab 04/29/19 [Rx] Simethicone 40 mg/0.6 ml Drops [Mylicon Drops] 40 mg PO [facility] PRN #30 ml 04/29/19 [Rx] Follow up Appointment(s)/Referral(s): [facility] [NON-STAFF] - 05/02/19 11:40 am Activity/Diet/Wound Care/Special Instructions: Continue scopolamine patch at discharge No lifting greater than 4 pounds for 4 weeks. May shower. No bathtub soaks Drinks 64 ounces of fluid daily. Notify bariatric center for temperature over 101.0, increased pain, or drainage from incisions No straws or carbonated beverages. Liquid diet only. Sugar content should be less than 6 g to avoid dumping syndrome. Take milk of magnesia for constipation as needed Crush open or cut tablets which are the size of a tic tac
== END 2019-04-29 16:30 | disposition home or self-care (01) | DRG 621 ==
LOC: 2ORMAIN 12:15 → 4SSUR 16:05
PROVIDERS: ADMIT Surgery Plastic and Reconstructive Surgery; ATTEND Surgery Plastic and Reconstructive Surgery
PROC: 0DJ08ZZ Inspection of Upper Intestinal Tract, Via Natural or Artificial Opening Endoscopic (ICD-10-PCS; 2019-04-28)
PROC: 8E0W4CZ Robotic Assisted Procedure of Trunk Region, Percutaneous Endoscopic Approach (ICD-10-PCS; 2019-04-28)
PROC: 0DB64Z3 Excision of Stomach, Percutaneous Endoscopic Approach, Vertical (ICD-10-PCS; principal; 2019-04-28 13:55)
DX: E66.01 Morbid (severe) obesity due to excess calories (principal); Z68.38 Body mass index [BMI] 38.0-38.9, adult; D50.9 Iron deficiency anemia, unspecified; K21.9 Gastro-esophageal reflux disease without esophagitis; M16.0 Bilateral primary osteoarthritis of hip; M17.0 Bilateral primary osteoarthritis of knee; Z71.3 Dietary counseling and surveillance; Z79.899 Other long term (current) drug therapy; Z98.890 Other specified postprocedural states
CPT/HCPCS: 74240; 80051; 81025; 82310; 82565; 83735; 84100; 84520; 85025; 86850; 86900; 86901; 88307; 94640; 94760; 94762

== ENCOUNTER → 2019-05-02 | Outpatient (CLI) | payer MEDICAID ==
[~2019-05-02] MED LIST changes: -CHLORHEXIDINE GLUCONATE 15 ML CUP MUCOUS MEM ONE; -ENOXAPARIN 40 MG/0.4 ML SYRINGE SQ STA; -LIDOCAINE 1% 20 ML VIAL (10MG/ML) FOR IV START INTRADERMA PRN; -ONDANSETRON 4 MG/2 ML VIAL IVP ONE; -ONDANSETRON 4 MG/2 ML VIAL IVP PRN; -PANTOPRAZOLE 40 MG/10 ML VIAL IV STA; -SCOPOLAMINE 1.5MG/72HR PATCH TRANSDERM ONE
--- NOTE | 2019-05-02 11:06 | P.PN ---
Subjective Progress Note Date: 05/02/19 Patient had burping to be expected. Had double vision from scopalamine patch resolved following removal. Oral intake supbar, less than 30 oz daily. She reports moderate soreness. Liquid tylenol gone. Recommend decadron and liquid tylenol. Continue ice and binder. Follow up next week, nurse visit. Objective - Vital Signs Vital signs: Intake & Output 05/01/19 05/02/19 05/02/19 18:59 06:59 18:59 Weight 97.976 kg
[2019-05-02 11:07] VITALS: BP 118/83; PULSE 69; RESP 16; TEMP 97.5
[2019-05-02] MEDS: SODIUM CHLORIDE 0.9% 1,000 ML IV SCH ×2 (11:09→12:10)
[2019-05-02 11:22] VITALS: BMI 37.0
== END | disposition home or self-care (01) ==
LOC: PROCWHC3 09:59
PROVIDERS: ATTEND Surgery Plastic and Reconstructive Surgery
DX: E86.0 Dehydration (principal); R11.0 Nausea; R11.10 Vomiting, unspecified
CPT/HCPCS: 99211; 96360; 96361; J1100

== ENCOUNTER → 2019-05-07 | Outpatient (CLI) | payer MEDICAID ==
--- NOTE | 2019-05-07 10:27 | P.PN ---
Subjective Progress Note Date: 05/07/19 DATE OF SERVICE: 05/07/2019 CHIEF COMPLAINT: Morbid obesity. HISTORY OF PRESENT ILLNESS: Luz Pepe is a 33-year-old female status post sleeve gastrectomy, 04/28/19. She is POD 9. She is doing much better with fluids. She complains of dimpling along left upper quadrant incision. No infection. Fluid adequate intake over 60 ounces daily At height of 5 feet 4 inches, her ideal body weight is 144 pounds. Her highest weight was 260 pounds, BMI 44.7. She comes in 211 pounds from 216 pounds, 1 week ago. She has lost 5 pounds in 1 week. She has lost 49 pounds lifetime. Percent excess weight loss of 43%, lifetime. Her body mass index is 36.2. She is 67 pounds overweight. PHYSICAL EXAM: VITAL SIGNS: Height 5 foot 4 inches, weight 211 pounds. BMI 36.2 Vital Signs Temp 98.5 F 05/07/19 10:16 Pulse 100 05/07/19 10:16 Resp BP 106/83 05/07/19 10:16 Pulse Ox GENERAL: Well-developed in no acute distress. HEENT: No scleral icterus. Extraocular movements grossly intact. Hears conversational speech. No nasal drainage. NECK: Supple without lymphadenopathy. CHEST: Nonlabored respirations with equal bilateral excursions. CARDIOVASCULAR: Distal 2+ pulses. ABDOMEN: Obese, soft, incisions are clean, dry and intact. No infection. MUSCULOSKELETAL: No clubbing, cyanosis. Gross strength 5/5 distal lower extremities. NEURO: No focal or lateralizing signs. Cranial nerves 2 through 12 grossly within normal limits. PSYCH: Appropriate affect. Alert and oriented to person, place and time. SKIN: Good skin turgor. Well perfused. ASSESSMENT: 1. Morbid obesity due to excess calories 2. Body mass index of 44.7, initial to 36.2 3. Gastroesophageal reflux disease 4. Iron deficiency anemia 5. Pre-hypertension 6. Obstructive sleep apnea. 7. Status post sleeve gastrectomy PLAN: 1. Follow-up one month post procedure.
[2019-05-07 11:58] VITALS: BMI 36.2
[2019-05-07 16:47] VITALS: BP 106/83; PULSE 100; TEMP 98.5
== END | disposition home or self-care (01) ==
LOC: BARWHC3 09:56
PROVIDERS: ATTEND Surgery Plastic and Reconstructive Surgery
DX: Z48.815 Encounter for surgical aftercare following surgery on the digestive system (principal); E66.01 Morbid (severe) obesity due to excess calories; K21.9 Gastro-esophageal reflux disease without esophagitis; D50.9 Iron deficiency anemia, unspecified; I10 Essential (primary) hypertension; G47.33 Obstructive sleep apnea (adult) (pediatric); Z98.84 Bariatric surgery status; Z68.36 Body mass index [BMI] 36.0-36.9, adult
CPT/HCPCS: 97803; 99211

== ENCOUNTER → 2019-05-21 | Outpatient (CLI) | payer MEDICAID ==
[2019-05-21 12:07] VITALS: BP 164/90; PULSE 81; TEMP 98.2; BMI 35.3
[2019-05-21 13:33] LABS: HCT 41.7 % (34.0-46.0); MCH 30.6 pg (25.0-35.0); MCHC 33.7 g/dL (31.0-37.0); MCV 90.8 fL (80.0-100.0); Mean Platelet Volume 8.5; Platelet Count 182 k/uL (150-450); RBC 4.58 m/uL (3.80-5.40); RDW 13.5 % (11.5-15.5); WBC 6.9 k/uL (3.8-10.6)
[2019-05-21 13:46] LABS: Prothrombin Time 10.8 sec (9.0-12.0)
--- NOTE | 2019-05-21 13:46 | P.PN ---
Subjective Progress Note Date: 05/21/19 DATE OF SERVICE: 05/21/2019 CHIEF COMPLAINT: Morbid obesity. HISTORY OF PRESENT ILLNESS: Luz Pepe is a 33-year-old female status post sleeve gastrectomy, 04/28/19. She is 3 weeks out. No abdominal pain. She has dimpling at the left upper quadrant. Her fluids are adequate. At height of 5 feet 4 inches, her ideal body weight is 144 pounds. Her highest weight was 260 pounds, BMI 44.7. She comes in 206 pounds from 211 pounds, 2 weeks ago. She has lost 5 pounds in 2 weeks. She has lost 54 pounds lifetime. Percent excess weight loss of 47%, lifetime. Her body mass index is 35.4. She is 62 pounds overweight. PHYSICAL EXAM: VITAL SIGNS: Height 5 foot 4 inches, weight 206 pounds. BMI 35.4 Vital Signs Temp 98.2 F 05/21/19 12:00 Pulse 81 05/21/19 12:00 Resp BP 164/90 05/21/19 12:00 Pulse Ox GENERAL: Well-developed in no acute distress. HEENT: No scleral icterus. Extraocular movements grossly intact. Hears conversational speech. No nasal drainage. NECK: Supple without lymphadenopathy. CHEST: Nonlabored respirations with equal bilateral excursions. CARDIOVASCULAR: Distal 2+ pulses. ABDOMEN: Obese, soft, incisions granulated. No infection. MUSCULOSKELETAL: No clubbing, cyanosis. Gross strength 5/5 distal lower extremities. NEURO: No focal or lateralizing signs. Cranial nerves 2 through 12 grossly within normal limits. PSYCH: Appropriate affect. Alert and oriented to person, place and time. SKIN: Good skin turgor. Well perfused. ASSESSMENT: 1. Morbid obesity due to excess calories 2. Body mass index of 44.7, initial to 35.4 3. Gastroesophageal reflux disease 4. Iron deficiency anemia 5. Pre-hypertension 6. Obstructive sleep apnea. 7. Status post sleeve gastrectomy PLAN: 1. Journaling foods advised. 2. Follow up in 3 months July. 3. Recommend moisturizer for the skin. 4. Recommend bariatric labs Laboratory Last Values WBC 6.9 k/uL (3.8-10.6) 05/21/19 13:15 RBC 4.58 m/uL (3.80-5.40) 05/21/19 13:15 Hgb 14.0 gm/dL (11.4-16.0) 05/21/19 13:15 Hct 41.7 % (34.0-46.0) 05/21/19 13:15 MCV 90.8 fL (80.0-100.0) 05/21/19 13:15 MCH 30.6 pg (25.0-35.0) 05/21/19 13:15 MCHC 33.7 g/dL (31.0-37.0) 05/21/19 13:15 RDW 13.5 % (11.5-15.5) 05/21/19 13:15 Plt Count 182 k/uL (150-450) 05/21/19 13:15 PT 10.8 sec (9.0-12.0) 05/21/19 13:15 INR 1.0 (<1.2) 05/21/19 13:15 APTT 26.0 sec (22.0-30.0) 05/21/19 13:15 Sodium 139 mmol/L (135-145) 05/21/19 13:15 Potassium 4.1 mmol/L (3.5-5.5) 05/21/19 13:15 Chloride 104 mmol/L (96-109) 05/21/19 13:15 Carbon Dioxide 25.4 mmol/L (21.6-31.8) 05/21/19 13:15 Anion Gap 9.60 mmol/L (4.00-12.00) 05/21/19 13:15 BUN 18.0 mg/dL (9.0-27.0) 05/21/19 13:15 Creatinine 0.7 mg/dL (0.6-1.5) 05/21/19 13:15 Est GFR (CKD-EPI)AfAm 131.9 (60.0-200.0) 05/21/19 13:15 Est GFR (CKD-EPI)NonAf 113.8 (60.0-200.0) 05/21/19 13:15 BUN/Creatinine Ratio 25.71 Ratio (12.00-20.00) H 05/21/19 13:15 Glucose 87 mg/dL (70-110) 05/21/19 13:[address] Glu mg/dL 97 05/21/19 13:15 Hemoglobin A1c 5.0 % (4.0-6.0) 05/21/19 13:15 Calcium 9.0 mg/dL (8.7-10.3) 05/21/19 13:15 Phosphorus 3.5 mg/dL (2.4-5.1) 05/21/19 13:15 Magnesium 1.8 mg/dL (1.5-2.4) 05/21/19 13:15 Iron 39 ug/dL (50-170) L 05/21/19 13:15 TIBC 191 ug/dL (228-460) L 05/21/19 13:15 % Saturation 20.42 (12.00-45.00) 05/21/19 13:15 Ferritin 773.8 ng/mL (10.0-291.0) H 05/21/19 13:15 Total Bilirubin 0.4 mg/dL (0.2-1.2) 05/21/19 13:15 AST 17 U/L (13-35) 05/21/19 13:15 ALT 18 U/L (8-44) 05/21/19 13:15 Alkaline Phosphatase 55 U/L (41-126) 05/21/19 13:15 Total Protein 6.4 g/dL (6.2-8.2) 05/21/19 13:15 Albumin 4.10 g/dL (3.80-4.90) 05/21/19 13:15 Globulin 2.3 g/dL (1.6-3.3) 05/21/19 13:15 Albumin/Globulin Ratio 1.78 g/dL (1.60-3.17) 05/21/19 13:15 Prealbumin 14.0 mg/dL (18.0-42.0) L 05/21/19 13:15 Triglycerides 93.0 mg/dL (0.0-149.0) 05/21/19 13:15 Cholesterol 119 mg/dL (0-200) 05/21/19 13:15 LDL Cholesterol, Calc 69.4 mg/dL (0.0-131.0) 05/21/19 13:15 VLDL Cholesterol, Calc 18.60 mg/dL (5.00-40.00) 05/21/19 13:15 HDL Cholesterol 31.0 mg/dL (40.0-60.0) L 05/21/19 13:15 Cholesterol/HDL Ratio 3.84 05/21/19 13:15 Vitamin A 28 ug/dL (38-106) L 05/21/19 13:15 Vitamin B1 57 ug/L (38-122) 05/21/19 13:15 Vitamin B12 880.0 pg/mL (200.0-944.0) 05/21/19 13:15 Vitamin D 25-Hydroxy 47.6 ng/mL (30.0-100.0) 05/21/19 13:15 Folate 17.3 ng/mL 05/21/19 13:15 TSH 3.260 uIU/mL (0.350-5.500) 05/21/19 13:15 PTH Intact 24.9 pg/mL (14.0-72.0) 05/21/19 13:15 Copper 1060 ug/L (810-1990) 05/21/19 13:15 Selenium 124 mcg/L (63-160) 05/21/19 13:15 Zinc 85 ug/dL (60-130) 05/21/19 13:15 Vitamin A low Iron is low Objective - Vital Signs Vital signs: Vital Signs Temp 98.2 F 05/21/19 12:00 Pulse 81 05/21/19 12:00 Resp BP 164/90 05/21/19 12:00 Pulse Ox Intake & Output 05/20/19 05/21/19 05/21/19 18:59 06:59 18:59 Weight 93.44 kg - Labs CBC & Chem 7: 05/21/19 13:15 05/21/19 13:15
[2019-05-21 19:45] LABS: % Iron Saturation 20.42 (12.00-45.00); African American GFR (CKD) 131.9 (60.0-200.0); Albumin 4.1 g/dL (3.80-4.90); Albumin/Globulin Ratio 1.78 (1.60-3.17); Anion Gap 9.6 mmol/L (4.00-12.00); BUN/Creat Ratio 25.71 Ratio (12.00-20.00); Carbon Dioxide 25.4 mmol/L (21.6-31.8); Chol/HDL Ratio 3.84; Ferritin 773.8 ng/mL (10.0-291.0); Folate, Serum 17.3 ng/mL; Globulin 2.3 g/dL (1.6-3.3); LDL Cholesterol,Calculated 69.4 mg/dL (0.0-131.0); Magnesium 1.8 mg/dL (1.5-2.4); Non-African American GFR(CKD) 113.8 (60.0-200.0); Phosphorus 3.5 mg/dL (2.4-5.1); Potassium 4.1 mmol/L (3.5-5.5); Total Bilirubin 0.4 mg/dL (0.2-1.2); Total Protein 6.4 g/dL (6.2-8.2); VLDL Calculation 18.6 mg/dL (5.00-40.00)
[2019-05-22 12:55] LABS: Zinc, Serum 85 ug/dL (60-130)
[2019-05-23 06:25] LABS: Vitamin A 28 ug/dL (38-106)
[2019-05-23 06:51] LABS: Vit B1(Thiamine) 57 ug/L (38-122)
[2019-05-27 19:34] LABS: Selenium 124 mcg/L (63-160)
== END | disposition home or self-care (01) ==
LOC: BARWHC3 11:24
PROVIDERS: ATTEND Surgery Plastic and Reconstructive Surgery
DX: Z48.815 Encounter for surgical aftercare following surgery on the digestive system (principal); E66.01 Morbid (severe) obesity due to excess calories; K21.9 Gastro-esophageal reflux disease without esophagitis; D50.9 Iron deficiency anemia, unspecified; I10 Essential (primary) hypertension; G47.33 Obstructive sleep apnea (adult) (pediatric); Z98.84 Bariatric surgery status; Z68.35 Body mass index [BMI] 35.0-35.9, adult; E21.1 Secondary hyperparathyroidism, not elsewhere classified; E89.1 Postprocedural hypoinsulinemia; K90.9 Intestinal malabsorption, unspecified; E55.9 Vitamin D deficiency, unspecified; K76.9 Liver disease, unspecified; N19 Unspecified kidney failure; K50.90 Crohn's disease, unspecified, without complications
CPT/HCPCS: 80053; 80061; 82306; 82525; 82607; 82728; 82746; 83036; 83540; 83550; 83735; 83970; 84100; 84134; 84255; 84425; 84443; 84590; 84630; 85027; 85610; 85730; 97803; 99211

== ENCOUNTER → 2019-07-23 | Outpatient (CLI) | payer MEDICAID ==
[2019-07-23 16:21] VITALS: BP 106/72; PULSE 92; TEMP 98.5; BMI 33.1
--- NOTE | 2019-07-23 16:30 | P.PN ---
Subjective Progress Note Date: 07/23/19 DATE OF SERVICE: CHIEF COMPLAINT: Status post sleeve gastrectomy HISTORY OF PRESENT ILLNESS: Luz Pepe is a 33-year-old female status post sleeve gastrectomy, 04/28/19. She is 3 months out. She is doing well. She denies gastroesophageal reflux disease. She has denies any current problems. At height of 5 feet 4 inches, her ideal body weight is 144 pounds. Her highest weight was 260 pounds, BMI 44.7. She comes in 193 pounds from 206 pounds, 2 months ago. She has lost 13 pounds in 2 months. Lifetime weight loss of 67 pounds. Percent excess weight loss of 58 %, lifetime. Her body mass index is 33.1. She is 49 pounds overweight. PHYSICAL EXAM: VITAL SIGNS: Height 5 foot 4 inches, weight 193 pounds. BMI 33.1 Vital Signs Temp 98.5 F 07/23/19 16:18 Pulse 92 07/23/19 16:18 Resp BP 106/72 07/23/19 16:18 Pulse Ox GENERAL: Well-developed in no acute distress. HEENT: No scleral icterus. Extraocular movements grossly intact. Hears conve rsational speech. No nasal drainage. NECK: Supple without lymphadenopathy. CHEST: Nonlabored respirations with equal bilateral excursions. CARDIOVASCULAR: Distal 2+ pulses. ABDOMEN: Obese, soft, incisions granulated. No infection. MUSCULOSKELETAL: No clubbing, cyanosis. NEURO: No focal or lateralizing signs. Cranial nerves 2 through 12 grossly within normal limits. PSYCH: Appropriate affect. Alert and oriented to person, place and time. SKIN: Good skin turgor. Well perfused. LABS: Pre-albumin is low, Vitamin A is low, iron is low ASSESSMENT: 1. Morbid obesity due to excess calories 2. Body mass index of 44.7, initial to 35.4 3. Gastroesophageal reflux disease 4. Iron deficiency anemia 5. Pre-hypertension 6. Obstructive sleep apnea. 7. Status post sleeve gastrectomy 8. Vitamin A deficiency 9. Iron deficiency PLAN: 1. She can come off Omeprazole. 2. Recommend Vitamin A supplement 8000 units daily. 3. Iron supplement 325 mg three times daily 4. Recommend bariatric labs Laboratory Last Values WBC 3.4 k/uL (3.8-10.6) L 07/23/19 17:33 RBC 4.27 m/uL (3.80-5.40) 07/23/19 17:33 Hgb 13.3 gm/dL (11.4-16.0) 07/23/19 17:33 Hct 41.1 % (34.0-46.0) 07/23/19 17:33 MCV 96.2 fL (80.0-100.0) D 07/23/19 17:33 MCH 31.2 pg (25.0-35.0) 07/23/19 17:33 MCHC 32.4 g/dL (31.0-37.0) 07/23/19 17:33 RDW 13.3 % (11.5-15.5) 07/23/19 17:33 Plt Count 162 k/uL (150-450) 07/23/19 17:33 PT 9.9 sec (9.0-12.0) 07/23/19 17:33 INR 1.0 (<1.2) 07/23/19 17:33 APTT 25.7 sec (22.0-30.0) 07/23/19 17:33 Sodium 139 mmol/L (135-145) 07/23/19 17:33 Potassium 3.6 mmol/L (3.5-5.5) 07/23/19 17:33 Chloride 104 mmol/L (96-109) 07/23/19 17:33 Carbon Dioxide 27.6 mmol/L (21.6-31.8) 07/23/19 17:33 Anion Gap 7.40 mmol/L (4.00-12.00) 07/23/19 17:33 BUN 17.0 mg/dL (9.0-27.0) 07/23/19 17:33 Creatinine 0.8 mg/dL (0.6-1.5) 07/23/19 17:33 Est GFR (CKD-EPI)AfAm 112.3 (60.0-200.0) 07/23/19 17:33 Est GFR (CKD-EPI)NonAf 96.9 (60.0-200.0) 07/23/19 17:33 BUN/Creatinine Ratio 21.25 Ratio (12.00-20.00) H 07/23/19 17:33 Glucose 116 mg/dL (70-110) H 07/23/19 17:[address] Glu mg/dL 88 07/23/19 17:33 Hemoglobin A1c 4.7 % (4.0-6.0) 07/23/19 17:33 Calcium 8.9 mg/dL (8.7-10.3) 07/23/19 17:33 Phosphorus 3.6 mg/dL (2.4-5.1) 07/23/19 17:33 Magnesium 2.0 mg/dL (1.5-2.4) 07/23/19 17:33 Iron 21 ug/dL (50-170) L 07/23/19 17:33 TIBC 206 ug/dL (228-460) L 07/23/19 17:33 % Saturation 10.19 (12.00-45.00) L 07/23/19 17:33 Ferritin 455.9 ng/mL (10.0-291.0) H 07/23/19 17:33 Total Bilirubin 0.3 mg/dL (0.3-1.2) 07/23/19 17:33 AST 17 U/L (13-35) 07/23/19 17:33 ALT 16 U/L (8-44) 07/23/19 17:33 Alkaline Phosphatase 62 U/L (41-126) 07/23/19 17:33 Total Protein 6.6 g/dL (6.2-8.2) 07/23/19 17:33 Albumin 4.40 g/dL (3.80-4.90) 07/23/19 17:33 Globulin 2.2 g/dL (1.6-3.3) 07/23/19 17:33 Albumin/Globulin Ratio 2.00 g/dL (1.60-3.17) 07/23/19 17:33 Prealbumin 19.0 mg/dL (18.0-42.0) 07/23/19 17:33 Triglycerides 119.0 mg/dL (0.0-149.0) 07/23/19 17:33 Cholesterol 136 mg/dL (0-200) 07/23/19 17:33 LDL Cholesterol, Calc 66.2 mg/dL (0.0-131.0) 07/23/19 17:33 VLDL Cholesterol, Calc 23.80 mg/dL (5.00-40.00) 07/23/19 17:33 HDL Cholesterol 46.0 mg/dL (40.0-60.0) 07/23/19 17:33 Cholesterol/HDL Ratio 2.96 07/23/19 17:33 Vitamin A 41 ug/dL (38-106) 07/23/19 17:33 Vitamin B1 66 ug/L (38-122) 07/23/19 17:33 Vitamin B12 617.0 pg/mL (200.0-944.0) 07/23/19 17:33 Vitamin D 25-Hydroxy 52.2 ng/mL (30.0-100.0) 07/23/19 17:33 Folate 13.9 ng/mL 07/23/19 17:33 TSH 2.690 uIU/mL (0.350-5.500) 07/23/19 17:33 PTH Intact 23.9 pg/mL (14.0-72.0) 07/23/19 17:33 Copper 1050 ug/L (810-1990) 07/23/19 17:33 Selenium 89 mcg/L (63-160) 07/23/19 17:33 Zinc 56 ug/dL (60-130) L 07/23/19 17:33 WBC is low Iron is low Zinc is low Objective - Vital Signs Vital signs: Vital Signs Temp 98.5 F 07/23/19 16:18 Pulse 92 07/23/19 16:18 Resp BP 106/72 07/23/19 16:18 Pulse Ox Intake & Output 07/22/19 07/23/19 07/23/19 18:59 06:59 18:59 Weight 87.543 kg - Labs CBC & Chem 7: 07/23/19 17:33 07/23/19 17:33
[2019-07-23 17:53] LABS: HCT 41.1 % (34.0-46.0); HGB 13.3 gm/dL (11.4-16.0); MCH 31.2 pg (25.0-35.0); MCHC 32.4 g/dL (31.0-37.0); Mean Platelet Volume 8.4; Platelet Count 162 k/uL (150-450); RBC 4.27 m/uL (3.80-5.40); RDW 13.3 % (11.5-15.5); WBC 3.4 k/uL (3.8-10.6)
[2019-07-23 18:00] LABS: MCV 96.2 fL (80.0-100.0)
[2019-07-23 18:09] LABS: Partial Thromboplastin Time 25.7 sec (22.0-30.0); Prothrombin Time 9.9 sec (9.0-12.0)
[2019-07-24 00:32] LABS: Hemoglobin A1C 4.7 % (4.0-6.0)
[2019-07-24 00:55] LABS: % Iron Saturation 10.19 (12.00-45.00); African American GFR (CKD) 112.3 (60.0-200.0); Albumin 4.4 g/dL (3.80-4.90); Anion Gap 7.4 mmol/L (4.00-12.00); BUN/Creat Ratio 21.25 Ratio (12.00-20.00); Calcium 8.9 mg/dL (8.7-10.3); Carbon Dioxide 27.6 mmol/L (21.6-31.8); Chol/HDL Ratio 2.96; Ferritin 455.9 ng/mL (10.0-291.0); Folate, Serum 13.9 ng/mL; Globulin 2.2 g/dL (1.6-3.3); LDL Cholesterol,Calculated 66.2 mg/dL (0.0-131.0); Non-African American GFR(CKD) 96.9 (60.0-200.0); Phosphorus 3.6 mg/dL (2.4-5.1); Potassium 3.6 mmol/L (3.5-5.5); Total Bilirubin 0.3 mg/dL (0.3-1.2); Total Protein 6.6 g/dL (6.2-8.2); VLDL Calculation 23.8 mg/dL (5.00-40.00)
[2019-07-24 14:51] LABS: Zinc, Serum 56 ug/dL (60-130)
[2019-07-25 07:45] LABS: Vitamin A 41 ug/dL (38-106)
[2019-07-25 10:47] LABS: Vit B1(Thiamine) 66 ug/L (38-122)
[2019-07-26 00:18] LABS: Selenium 89 mcg/L (63-160)
== END | disposition home or self-care (01) ==
LOC: BARWHC3 15:41
PROVIDERS: ATTEND Surgery Plastic and Reconstructive Surgery
DX: Z48.815 Encounter for surgical aftercare following surgery on the digestive system (principal); E66.01 Morbid (severe) obesity due to excess calories; K21.9 Gastro-esophageal reflux disease without esophagitis; D50.9 Iron deficiency anemia, unspecified; I10 Essential (primary) hypertension; G47.33 Obstructive sleep apnea (adult) (pediatric); E50.9 Vitamin A deficiency, unspecified; Z98.84 Bariatric surgery status; Z68.35 Body mass index [BMI] 35.0-35.9, adult; Z79.899 Other long term (current) drug therapy
CPT/HCPCS: 80053; 80061; 82306; 82525; 82607; 82728; 82746; 83036; 83540; 83550; 83735; 83970; 84100; 84134; 84255; 84425; 84443; 84590; 84630; 85027; 85610; 85730; 99211